=== PATIENT | female | born 1940 | race Caucasian/White ===

== ENCOUNTER 2017-12-26 18:11 | Emergency (ER) | payer MEDICARE, SELFPAY ==
[2017-12-26 18:12] VITALS: BP 165/93; PULSE 71; RESP 18; TEMP 36.2; O2SAT 93; BMI 29.9
--- NOTE | 2017-12-26 18:37 | CT_ITS ---
STUDY: CT BRAIN WITHOUT CONTRAST REASON FOR EXAM: Female, 77 years old. Vertigo. Leg weakness. Dizziness RADIATION DOSAGE (If Supplied By Facility): CTDIvol = ( 44.99 ) mGy, DLP = ( 745.49 ) mGycm TECHNIQUE: Transaxial CT imaging of the brain was performed without administration of intravenous contrast material. Individualized dose optimization techniques were used for this CT. COMPARISON: None. FINDINGS: Normal soft tissue structures. Normal calvarium. There is moderate cerebral atrophy with widening of the extra-axial spaces and ventricular dilatation. There are areas of decreased attenuation within the white matter tracts of the supratentorial brain, consistent with microvascular disease changes. Normal basal ganglia and thalami. Normal brainstem. There is mild cerebellar atrophy. 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 There is no intracranial hemorrhage. There are no findings of an acute ischemic infarction. Normal visualized paranasal sinuses. CT/Brain/Head without Contrast IMPRESSION: Chronic involutional changes of the brain. Left-sided aneurysm. No hemorrhage N.B. : The above information has been verbally conveyed by Mikel Wilks MD to Ronen Aguayo on 12/26/2017 19:46:44 (ET). Electronically Signed: Mikel Wilks MD at 19:45 EDT , Service support , N.B. : The above information has been verbally conveyed by Mikel Wilks MD to Ronen Aguayo on 12/26/2017 19:46:44 (ET).
--- NOTE | 2017-12-26 18:37 | EKG12_ITS ---
Test Reason : DIZZINESS Blood Pressure : / mmHG Vent. Rate : 063 BPM Atrial Rate : 063 BPM P-R Int : 174 ms QRS Dur : 090 ms QT Int : 398 ms P-R-T Axes : 027 -46 166 degrees QTc Int : 407 ms Normal sinus rhythm Left axis deviation Poor R wave progression Nonspecific T wave abnormality Abnormal ECG Confirmed by JEANE CHRISTY, PRAVEEN ([id number]), editor producer PETER ORLANDO ([id number]) on 12/28/2017 10:55:41 AM Referred By: JENELLE Confirmed By:PRAVEEN CHING MD
[2017-12-26 19:06] LABS: Absolute Lymphocyte Count 1.98 X10^3/ul (0.83-4.51); Absolute Neutrophil Count 4.5 X10^3/uL (2.0-7.7); Basophil# 0.03 X10^3/uL; Basophil% 0.4 % (0-1); Eosinophil# 0.55 X10^3/uL; Eosinophils% 7.2 % (0-5); Hematocrit 39.5 % (37-47); Hemoglobin 12.7 g/dl (12.0-15.0); Lymphocyte # 1.98 X10^3/ul (4.0); Mean Corp Hgb Conc 32.2 g/gl (32-36); Mean Corpuscular Hgb 27.3 pg (27.0-32.0); Mean Corpuscular Volume 84.8 fL (81-99); Mean Platelet Vol. 10.1 fl (6.2-12.0); Monocyte# 0.59 X10^3/uL; Monocyte% 7.8 % (0-10); Neutrophil # 4.45 X10^3/uL (2.7-7.7); Neutrophil % 58.5 % (47-70); Platelet Count 325 K/mm3 (150-450); RBC Distribution Width SD 49.5 fl (35.1-43.9); Red Blood Count 4.66 M/mm3 (4.2-5.4); White Blood Count 7.6 K/mm3 (4.4-11.0)
[2017-12-26 19:07] LABS: POSITIVE COUNT NO; POSITIVE DIFFERENTIAL NO; POSITIVE MORPHOLOGY NO
[2017-12-26 19:17] LABS: Anion Gap 8 (5-15); BUN 11 mg/dL (7-18); BUN/Creat Ratio 12.7 RATIO (10-20); Calcium,Total 8.8 mg/dL (8.5-10.1); Chloride 106 mmol/L (98-107); Creatinine, Serum 0.87 mg/dL (0.55-1.02); EST Glomerular Filtration Rate 67 mL/min (>60); Est Glom Filt Rate - Afr Amer 81 mL/min (>60); Glucose 131 mg/dL (74-106); Potassium 3.7 mmol/L (3.5-5.1); Sodium Level 139 mmol/L (136-145)
[2017-12-26 19:48] LABS: Red Blood Cells-Urine 0 SEEN /hpf (0-5); White Blood Cells 0 SEEN /hpf (0-5)
[2017-12-26] MEDS: 0.9% Normal Saline 1,000 ML 150 ML IV (19:48)
[2017-12-26] MEDS: Meclizine HCl 25 MG Tablet PO (19:48)
[2017-12-26 19:53] LABS: Color, Urine Yellow (Yellow); Glucose, Dipstick Normal (Normal); Ketone-Dipstick 5 mg/dl (Negative); Leukocyte Esterase-Dipstick 25 /ul (Negative); Nitrite-Dipstick Negative (Negative); Occult Blood-Urine 25 /ul (Negative); Protein-Dipstick 30 mg/dl (Negative); Urine Clarity Sl. Cloudy (Clear); Urine Urobilinogen 1 mg/dl (Normal)
[2017-12-26 19:55] LABS: Urine Bilirubin Dipstick 1 mg/dL (Negative)
[2017-12-26 20:09] LABS: Bacteria RARE /hpf (None Seen); Calcium Oxalate Crystals Ur 1+ /hpf (<or=2+); Mucous, Urine 2+ /hpf (<or=2+); Squamous Epithelial Cells - UA 10-25 SEEN /hpf (5-10)
[2017-12-26 20:52] VITALS: BP 169/79; PULSE 64; RESP 18; O2SAT 95
--- NOTE | 2017-12-26 20:57 | ED.DCSUM_ITS ---
- ER Visit Summary Date of Service: 12/26/17 Chief Complaint: Vertigo History of Present Illness: The patient is a [address] Scales and a neurologist at [facility], Dr. torres. She reports he has vertigo that began yesterday. It is intermittent episodes last minutes at a time. She increased with turning her head. States that she does hear when during these episodes. She has not had any nausea or vomiting with it. She denies any new numbness or weakness. Physical Examination: Vitals: Stable. Afebrile. General: Well-nourished and well-developed. Head: Normocephalic atraumatic. Neck: Supple, no lymphadenopathy. No JVD. Nontender. Cardiovascular: Regular rate and rhythm. No murmurs. Respiratory: No respiratory distress. Clear to auscultation bilaterally. Abdominal: Soft, nontender, nondistended, normal bowel sounds. No guarding, rebound, or peritoneal signs. Back: Nontender. Extremities: Nontender, no edema. Skin: Normal color, no rash. Neurologic: Alert and oriented ?3. Cranial nerves II through XII are intact. Normal strength and sensation. Psych: Normal affect. Test Results: CT brain shows chronic changes. She has a 1 cm partially calcified aneurysm at the origin of her left MCA. Patient is already aware of this. EKG is sinus at [address] changes. UA is negative. Chem-7 is more for glucose 131. CBC is marked for eosinophils of 7. Emergency Department Course and Treatment: Patient was given dose of Antivert has had significant improvement. She feels well and would like to go home. Treatment Plan: Patient be discharged Antivert. Instructed from Dr. Scales in 1-2 days if not improving. Return to the emergency department for any worsening symptoms. Disposition: To home in improved and stable condition. Impression: 1. Vertigo, peripheral. This note was generated with [employer] dictation software. It may contain incorrect words, spelling, and punctuation that were not noted in review of the chart prior to signing ED Disposition - Plan for ED Patient: Disposition: Home or Assisted Living Chief Complaint: Dizziness Instructions: ED Vertigo Unspecified Prescriptions: Meclizine HCl [Antivert] 25 mg PO 4X/DAY PRN PRN #20 tablet PRN Reason: Dizziness Referrals: Anya Scales MD [Primary Care Provider] - 1-2 Days if not improving
[2017-12-26 21:28] VITALS: BP 162/73; PULSE 63; RESP 16; O2SAT 96
== END 2017-12-26 21:29 | disposition home or self-care (01) ==
LOC: ED 18:46
PROVIDERS: Emergency Provider Emergency Medicine; Family Provider Internal Medicine; PCP Internal Medicine
DX: H81.399 Other peripheral vertigo, unspecified ear (principal); I10 Essential (primary) hypertension; G20 Parkinson's disease; I67.1 Cerebral aneurysm, nonruptured; K52.9 Noninfective gastroenteritis and colitis, unspecified; R51 Headache; Z79.899 Other long term (current) drug therapy
CPT/HCPCS: 70450; 80048; 81001; 85025; 93005; 96360; 96361; 99284; J7030; A4216

== ENCOUNTER 2020-03-30 16:59 | Emergency (ER) | payer MEDICARE, SELFPAY ==
[2020-03-30 17:01] VITALS: BP 151/79; PULSE 60; RESP 18; TEMP 36.3; O2SAT 94; BMI 28.9
--- NOTE | 2020-03-30 17:06 | CT_ITS ---
STUDY: CT CERVICAL SPINE WITHOUT CONTRAST REASON FOR EXAM: Female, 79 years old. Trauma. Fall Sunday. Facial bruising and swelling. Patient in for head. RADIATION DOSAGE (If Supplied By Facility): CTDIvol = ( 22.61 ) mGy, DLP = ( 413.46 ) mGycm TECHNIQUE: High resolution transaxial imaging was performed without contrast material. Sagittal and coronal images were reconstructed. Individualized dose optimization techniques were used for this CT. COMPARISON: None FINDINGS: Normal craniovertebral junction. There are degenerative changes of the anterior atlantoaxial articulation. Normal odontoid process. Normal cervical lordosis. Normal vertebral bodies and posterior osseous elements. C2-3: Normal endplates. Normal disc height and morphology. Facet joint degenerative change, most marked on the right. Normal central canal and intervertebral neuroforamina. C3-4: Normal endplates. Normal disc height and morphology. Facet no local vertebral joint degenerative change. Normal central canal. Minimal narrowing of the right intervertebral neuroforamen C4-5: Loss of disc height with endplate spondylosis. Facet and uncovertebral joint degenerative change. Normal central canal. Mild narrowing of the bilateral intervertebral neuroforamina, right greater than left. C5-6: Loss of disc height with endplate spondylosis. Facet and uncovertebral joint degenerative change. Normal central canal. Mild narrowing of the intervertebral neuroforamen C6-7: Loss of disc height with endplate spondylosis. Facet and uncovertebral joint degenerative change. Normal central canal. Narrowing of the bilateral intervertebral neuroforamina. C7-T1: Normal endplates. Normal disc height and morphology. Normal central canal and intervertebral neuroforamina. Normal visualized soft tissue structures. CT/Spine Cervical without Contras IMPRESSION: Diffuse degenerative change of the cervical spine without acute fracture or subluxation. Note: MRI is more sensitive than CT in detecting cord injury, ligamentous injury and epidural hematoma. If there is continued clinical concern for any of these entities, MRI should be considered. Electronically Signed: Marcos Maria DO at 17:52 EDT Tel [phone], Service support ,
--- NOTE | 2020-03-30 17:06 | CT_ITS ---
STUDY: CT BRAIN WITHOUT CONTRAST REASON FOR EXAM: Female, 79 years old. Trauma. Fall last Sunday. Bruising and swelling. Pain across forehead. Known brain aneurysm. History of Parkinson''s disease. RADIATION DOSAGE (If Supplied By Facility): CTDIvol = ( 44.99 ) mGy, DLP = ( 762.36 ) mGycm TECHNIQUE: Transaxial CT imaging of the brain was performed without administration of intravenous contrast material. Individualized dose optimization techniques were used for this CT. COMPARISON: 10/25/2017. FINDINGS: Normal soft tissue structures. Normal calvarium. There is mild cerebral atrophy with widening of the extra-axial spaces and ventricular dilatation. There are areas of decreased attenuation within the white matter tracts of the supratentorial brain, consistent with microvascular disease changes. Normal basal ganglia and thalami. Normal brainstem. Normal cerebellum. There is a crescentic calcification measuring 1.2 cm in diameter in the region of the distal left ICA consistent with aneurysm. There is no evidence of active bleed. There are no findings of an acute ischemic infarction. Normal visualized paranasal sinuses. CT/Brain/Head without Contrast IMPRESSION: 1. Stable aneurysm in the region of the distal left ICA. 2. Stable chronic involutional changes. No acute intracranial or calvarial abnormality. Electronically Signed: Marcos Maria DO at 17:42 EDT Tel [phone], Service support ,
--- NOTE | 2020-03-30 17:06 | CT_ITS ---
STUDY: CT FACIAL BONES WITHOUT CONTRAST REASON FOR EXAM: Female, 79 years old. Trauma. Fall Sunday. Facial bruising and swelling. Pain in the frontal area. RADIATION DOSAGE (If Supplied By Facility): CTDIvol = ( 29.38 ) mGy, DLP = ( 496.03 ) mGycm TECHNIQUE: The patient was scanned in a multi detector CT scanner. Sagittal and coronal images were reconstructed. Individualized dose optimization techniques were used for this CT. COMPARISON: CT of the head, 03/30/2020 and 12/26/2017. FINDINGS: Normal soft tissue structures. Normal orbital almeida and orbital contents. There are minimally depressed right sided nasal bone fractures. Normal anterior nasal spine. Otherwise normal facial bones. There is no other demonstrated fracture. Normal visualized paranasal sinuses. Also seen is a crescentic/circular calcification consistent with known aneurysm in the region of the left distal intracranial ICA. CT/Sinus/Facial Bone IMPRESSION: Right sided nasal bone fractures. Otherwise normal CT of the facial bones. Electronically Signed: Marcos Maria DO at 17:45 EDT Tel [phone], Service support ,
--- NOTE | 2020-03-30 18:30 | ED.VIS.GEN ---
History of Present Illness Chief Complaint: Fall Narrative: Patient presents after a mechanical fall a few days ago, she hit her face on the floor, she has Parkinson she is normally bedbound and had a mechanical fall 4 days ago. She denies any neck pain, she denies any new weakness she denies any back pain chest pain abdominal pain or extremity injury. Her main concern was the nose, she had quite a bit of bleeding at the time and she is still having pain. She has no vision changes. No confusion. Past Medical History - Allergies and Home Meds Allergies/Adverse Reactions: Allergies No Known Allergies Allergy (Verified 03/30/20 17:04) Primary Care Physician: Anya Scales MD [Primary Care Provider] - Past Medical History: - - Parkinson's disease, otherwise she is not anticoagulated, rest of the medical history was reviewed at the bedside with the patient and the . Smoking Status: Never smoker Review of Systems All systems negative except as indicated General: Denies: Fever Eyes: Denies: Visual changes - bilaterally ENT: Reports: - - Epistaxis which stopped 4 days ago, nasal injury. Respiratory: Denies: Dyspnea, Cough Gastrointestinal: Denies: Abdominal pain, Nausea, Vomiting Musculoskeletal: Denies: Myalgias, Arthralgias Neurological: Reports: - - No new focal weakness. Denies: Headache Hematologic: Denies: Easy bruising Physical Exam Vital Signs/Narrative: Vital Signs Temp Pulse Resp BP Pulse Ox 03/30/20 17:01 97.4 F L 60 18 151/79 H 94 General: - - Patient appears chronically ill but she appears quite comfortable in bed. Head: Normocephalic, Atraumatic Eyes: Perrl, EOMI ENT: - - She has tenderness over the nasal bridge, she has a significant contusion over the nasal bridge, she has periorbital ecchymosis mostly in the infraorbital region. She has full range of motion of the eyes without any pain or signs of entrapment. There is no nasal septal hematoma no epistaxis. Cardiovascular: Regular rate, Regular rhythm Respiratory: No distress, CTA bilaterally, Chest nontender Abdomen: Soft, Nontender Back: Nontender, Normal Inspection Extremities: Nontender. Negative for: Tenderness Skin: Normal color Neurological: Alert, Oriented x3 Diagnostic/Tx/Re-eval - Medical Decision Making Patient is found to have a nasal fracture, otherwise CT of the head and C-spine are unremarkable. It seems to me like she is healing well. She will be discharged with reassurance, I will treat her with analgesia. ED Disposition - Plan for ED Patient: Disposition: Home or Assisted Living Diagnosis: Concussion without loss of consciousness, Nose fracture Instructions: ED Concussion, ED Nose Fracture with X-Ray Prescriptions: Hydrocodone Bitart/Apap 5-325 [Arnold 5MG-325MG] 1 tab PO Q4H PRN PRN 2 Days #10 tab PRN Reason: Pain Prescription Printed Referrals: Anya Scales MD [Primary Care Provider] - 3-5 Days
[2020-03-30] MEDS: HYDROcodone Bitartrate/Apap 5/325 Tablet PO (18:40)
== END 2020-03-30 18:54 | disposition home or self-care (01) ==
PROVIDERS: Emergency Provider Emergency Medicine; PCP Internal Medicine
DX: S06.0X0A Concussion without loss of consciousness, initial encounter (principal); W01.0XXA Fall on same level from slipping, tripping and stumbling without subsequent striking against object, initial encounter; Y93.9 Activity, unspecified; Y92.9 Unspecified place or not applicable; S02.2XXA Fracture of nasal bones, initial encounter for closed fracture; G20 Parkinson's disease
CPT/HCPCS: 70450; 70486; 72125; 99283

== ENCOUNTER → 2023-06-06 | Outpatient (CLI) | payer MEDICARE, SELFPAY | END | disposition home or self-care (01) | LOC: LABSPEC 16:42 | PROVIDERS: PCP Internal Medicine; Referring Provider Otolaryngology Otolaryngology/Facial Plastic Surgery; Visit Provider Otolaryngology Otolaryngology/Facial Plastic Surgery | DX: J32.8 Other chronic sinusitis (principal) | CPT/HCPCS: 87070; 87077; 87186; 87205 ==